=== PATIENT | female | born 1975 | race Caucasian/White ===

== ENCOUNTER 2025-06-09 13:12 | Outpatient (CLI) | payer OTHER, SELFPAY ==
[2025-06-09 13:52] LABS: Hematocrit 46.1 % (37.0-47.0); Hemoglobin 15.3 g/dL (12.0-15.0); Mean Corpuscular HGB Conc 33.2 g/dl (32-36); Mean Corpuscular Hemoglobin 29.3 pg (26-34); Mean Corpuscular Volume 88.1 fl (80-100); Platelet Count Result 257 k/mm3 (150-375); Red Blood Count 5.23 M/mm3 (4.2-5.4); White Blood Count 8.2 K/mm3 (4.5-10.0)
[2025-06-09 14:17] LABS: Iron 73 ug/dL (37-170)
[2025-06-09 14:18] LABS: Albumin Level 4.4 g/dL (3.5-5.1); Anion Gap 8 mmol/L (4-12); Blood Urea Nitrogen 32 mg/dL (7-17); Calcium 9.3 mg/dL (8.4-10.2); Carbon Dioxide 26 mmol/L (22-30); Chloride 102 mmol/L (98-107); Estimated Glomerular Filt Rate 57; Glucose 81 mg/dL (65-110); Potassium 4.0 mmol/L (3.4-5.0); Sodium 136 mmol/L (137-145)
[2025-06-09 14:27] LABS: Prealbumin 29.9 mg/dL (17.6-36.0)
[2025-06-09 14:44] LABS: Hemoglobin A1C 5.3 % (<5.7)
--- OUTSIDE RECORDS SUMMARY | 2025-06-09 15:45 | XMS_ITS | Clinical Summary ---
Author Organization [facility] Address [address] [place] [address] Care Team Providers Care Ingot Weigher Name Role Phone None, Provider MD Primary Care Provider Unavaila ble Allergies No known active allergies Medications ZEPBOUND 7.5 MG/0.5ML injection Inject 7.5 mg into the skin once a week. 03/03/2025 Active Encounters Date Type Department Care Team Description 03/27/2025 1:29 PM CDT - 03/27/2025 4:49 PM CDT Emergency [facility] [place] [address] Coy Reynolds MD Breathing Problem Discharge Disposition: Home or Self Care (Routine Discharge) 03/27/2025 Travel from Last 3 Months Social History Tobacco Use Types Packs/Day Years Used Date Smoking Tobacco: Never Smokeless Tobacco: Never Tobacco Cessation:Counseling Given: Not Answered Alcohol Use Standard Drinks/Week Comments Never 0 (1 standard drink = 0.6 oz pur e alcohol) Comments No Sex and Gender Information Value Date Recorded Sex Assigned at Female 03/27/2025 1:23 PM CDT Legal Sex Female 1:17 PM CDT Gender Identity Not on file Sexual Orientation Not on file Last Filed Vital Signs Vital Sign Reading Time Taken Comments Blood Pressure 121/73 03/27/2025 4:40 PM CDT Pulse 65 03/27/2025 4:40 PM CDT Temperature 36.7 C (98.1 F) 03/27/2025 1:27 PM CDT Respiratory Rate 17 03/27/2025 4:40 PM CDT Oxygen Saturation 97% 03/27/2025 4:40 PM CDT Inhaled Oxygen Concentration - - Weight 77.9 kg (171 lb 11.8 oz) 03/27/2025 1:27 PM CDT Height 162.6 cm (5' 4) 03/27/2025 1:27 PM CDT Body Mass Index 29.48 03/27/2025 1:27 PM CDT Plan of Treatment Health Maintenance Due Date Last Done Comments Cervical Cancer Screening Pap Smear (Age 30 to 64) Every 3 Years 1975 Colorectal Cancer Screening Colonoscopy (10 Years) 1975 Annual Physical 1978 Hepatitis C 1993 DTaP, Tdap and Td Vaccines (1 - Tdap) 1994 Hepatitis B Vaccines (1 of 3 - 19+ 3-dose series) 1994 Cervical Cancer Screening Pap with HPV Testing (Age 30 to 64) Every 5 Years 2005 Cervical Cancer Screening with HPV 2005 Mammogram Screening 03/20/2025 03/20/2023, 06/08/2020, 12/14/2018, Additional history exists COVID-19 Vaccine ( season) 2025 Meningococcal B Vaccine Aged Out No l onger eligible based on patient's age to complete this topic Meningococcal Vaccine Aged Out No elsa minna eligible based on patient's age to complete this topic Pneumococcal Vaccine: Pediatrics (0 to 5 Years) and At-Risk Patients (6 to 49 Years) Aged Out No longer eligible based on patient's age to complete this topic RSV Immunizations Under 20 Months Aged Out No longer eligible based on patient's age to complete this topic Procedures Procedure Name Priority Date/Time Associated Diagnosis Comments TROPONIN, QUANT STAT 03/27/2025 3:35 PM CDT CTA CHEST PE PROTOCOL STAT 03/27/2025 3:09 PM CDT ELECTROCARDIOGRAM REPORT Routine 025 2:11 PM CDT XR CHEST PORTABLE STAT 03/27/2025 1:5 0 PM CDT CHORIONIC GONADOTROPIN HCG QL STAT 03/27/2025 1:31 PM CDT TROPONIN, QUANT STAT 03/27/2025 1:31 PM CDT COMPREHENSIVE METABOLIC PANEL STAT 03/27/2025 1:31 PM CDT CBC W/DIFF AUTOMATED STAT 03/27/2025 1:31 PM CDT ECG 12-LEAD Routine 03/27/2025 1:22 PM CDT from Last 3 Months Results * TROPONIN, QUANT (03/27/2025 3:35 PM CDT) Only the most recent of2 resultswithin the time period is included. TROPONIN I HIGH SENSITIVITY 6 <54 ng/L 03/27/2025 4:16 PM CDT [facility] Comment: HIGH DOSES OF BIOTIN, TROPONIN-SPECIFIC AUTOANTIBODIES, AND ANTIBODY THERAPY CONTAINING HAMA MAY INTERFERE WITH THIS TEST RESULT. CORRELATION TO CLINICAL HISTORY AND PRESENTATION RECOMMENDED. 03/27/2025 3:35 PM CDT Coy Reynolds MD LABORATORY Final Result [facility] [address] [place] [address], [place] [phone] * CTA CHEST PE PROTOCOL (03/27/2025 3:09 PM CDT) Anatomical Region Laterality Modality Chest Computed Tomogra phy 03/27/2025 3:45 PM CDT Impressions 03/27/2025 3:51 PM CDT Impression: 1. No pulmonary embolism identified through the segmental pulmonary artery branch level. Assessment for distal subsegmental emboli is limited due to breathing artifact and suboptimal bolus contrast opacification the pulmonary arterial tree. 2. No acute pulmonary abnormality. Ordered By: COY REYNOLDS Interpreted By: Nadya Delgadillo MD, 03/27/2025 3:45 PM Narrative 03/27/2025 3:51 PM CDT [facility] [address] [place], [place] [address] Exam: CT angiography chest Exam Date/Time: 03/27/2025 3:02 PM Indication: 49 female. Evaluation for pulmonary embolism. Left-sided chest discomfort, was too deep breathing. Comparison: Chest x-ray 03/27/2025 Technique: Computed tomography angiography of the chest was performed no protocol following uneventful intravenous administration of 100 mL Isovue-370 contrast. 3-D reconstructions and postprocessing performed on a separate dedicated 3-D workstation.. A dose lowering technique was used for this procedure, which may include, but is not limited to, dose reduction technique, automated exposure control, the use of iterative reconstruction, and ALARA (As Low As Reasonably Achievable) / Image Gently techniques. CTA Findings: VASCULATURE No intraluminal filling defects suggestive pulmonary embolism identified through the segmental pulmonary artery branch level within study limits. Assessment for distal subsegmental emboli is limited due to breathing artifact and suboptimal bolus contrast opacification the pulmonary arterial tree.. No findings of right heart strain. No central pulmonary arterial enlargement. Thoracic aorta is unremarkable MEDIASTINUM Support tubes and lines: None. Base of neck/thyroid: Negative. Heart: Normal in size. No pericardial effusion. Lymph nodes: No supraclavicular, axillary, internal mammary, mediastinal, or hilar adenopathy. LUNGS AND PLEURA Lungs: Bilateral mild central hemidiaphragm elevation and bibasilar subsegmental atelectasis. Otherwise lungs are clear. No concerning pulmonary nodule, mass or consolidation. No other acute or significant chronic airspace finding. Central airways are clear. No evidence thickening or mucous plugging Pleura: No pleural effusion, thickening, or calcification. UPPER ABDOMEN Unremarkable. BONES/SOFT TISSUES Minimal thoracic spine ventral endplate degenerative spurring. Endplate changes most pronounced at T11-12. No concerning focal lytic or blastic lesion Procedure Note Nadya Delgadillo MD - 03/27/2025 [facility] [address] [facility] [place] [address] Exam: CT angiography chest Exam Date/Time: 03/27/2025 3:02 PM Indication: 49 female. Evaluation for pulmonary embolism. Left-sided chestdiscomfort, was too deep breathing. Comparison: Chest x-ray 03/27/2025 Technique: Computed tomographyangiography of the chest was performed no protocol following uneventfulintravenous administration of 100 mL Isovue-370 contrast. 3-Dreconstructions and postprocessing performed on a separate dedicated 3-Dworkstation.. A dose lowering technique was used for this procedure, whichmay include, but is not limited to, dose reduction technique, automatedexposure control, the use of iterative reconstruction, and ALARA (As LowAs Reasonably Achievable) / Image Gently techniques. CTA Findings: VASCULATURE No intraluminal filling defects suggestive pulmonary embolism identifiedthrough the segmental pulmonary artery branch level within study limits.Assessment for distal subsegmental emboli is limited due to breathingartifact and suboptimal bolus contrast opacification the pulmonaryarterial tree.. No findings of right heart strain. No central pulmonary arterialenlargement. Thoracic aorta is unremarkable MEDIASTINUM Support tubes and lines: None. Base of neck/thyroid: Negative. Heart: Normal in size. No pericardial effusion. Lymph nodes: No supraclavicular, axillary, internal mammary, mediastinal,or hilar adenopathy. LUNGS AND PLEURA Lungs: Bilateral mild central hemidiaphragm elevation and bibasilarsubsegmental atelectasis. Otherwise lungs are clear. No concerningpulmonary nodule, mass or consolidation. No other acute or significantchronic airspace finding. Central airways are clear. No evidence thickening or mucous plugging Pleura: No pleural effusion, thickening, or calcification. UPPER ABDOMEN Unremarkable. BONES/SOFT TISSUES Minimal thoracic spine ventral endplate degenerative spurring. Endplatechanges most pronounced at T11-12. No concerning focal lytic or blasticlesion Impression: 1. No pulmonary embolism identified through the segmental pulmonaryartery branch level. Assessment for distal subsegmental emboli is limiteddue to breathing artifact and suboptimal bolus contrast opacification thepulmonary arterial tree. 2. No acute pulmonary abnormality. Ordered By: COY REYNOLDS Interpreted By: Nadya Delgadillo MD, 03/27/2025 3:45 PM us Coy Reynolds MD CT Final Result * EKG Reading (03/27/2025 2:11 PM CDT) Narrative Coy Reynolds MD - 03/27/2025 2:11 PM CDT Coy Reynolds MD 03/27/2025 4:36 PM EKG Reading Date/Time: 03/27/2025 2:11 PM Performed by: Coy Reynolds MD Authorized by: Coy Reynolds MD Interpreted by ED physician Previous ECG: no previous ECG available Rhythm: sinus rhythm Rate: normal BPM: 85 Comments: Normal sinus rhythm. Heart rate 85. Normal axis Norval normal QRS nonspecific ST-T wave change. No old EKG to compare. Rhythm strip ordered and interpreted 1322 Normal sinus rhythm. Heart rate 85. No ectopy us Coy Reynolds MD [facility] Final Result * XR CHEST PORTABLE (03/27/2025 1:50 PM CDT) Anatomical Region Laterality Modality Chest Radiographic Selene ging 03/27/2025 1:52 PM CDT Impressions 03/27/2025 1:52 PM CDT IMPRESSION: No acute findings Ordered By: COY REYNOLDS Interpreted By: Andrew Tierney MD, 03/27/2025 1:52 PM Narrative 03/27/2025 1:52 PM [address] [address] SINGLE VIEW OF THE CHEST Clinical history: Shortness of breath Comparison: None A single view of the chest demonstrates the cardiac silhouette to be normal in size and appearance. The pulmonary vessels appear normal. The Lungs are clear. No consolidations or effusions are seen. Procedure Note Andrew Tierney MD - 03/27/2025 [facility] [address] [place], [place] [address] SINGLE VIEW OF THE CHEST Clinical history: Shortness of breath Comparison: None A single view of the chest demonstrates the cardiac silhouette to benormal in size and appearance. The pulmonary vessels appear normal. TheLungs are clear. No consolidations or effusions are seen. IMPRESSION: No acute findings Ordered By: COY REYNOLDS Interpreted By: Andrew Tierney MD, 03/27/2025 1:52 PM us Coy Reynolds MD GENERAL IMAGING Final Result * (ABNORMAL) COMPREHENSIVE METABOLIC PANEL (03/27/2025 1:31 PM CDT) GLUCOSE 98 70 - 99 MG/DL 03/27/2025 2:04 PM CDT [facility] BUN 29(H) 7 - 18 MG/DL 03/27/2025 2:04 PM CDT [facility] CREATININE S/P/B 0.92 0.55 - 1.02 MG/DL 03/27/2025 2:04 PM CDT [facility] SODIUM S/P/B 141 136 - 145 MMOL/L 03/27/2025 2:04 PM CDT [facility] POTASSIUM S/P/B 3.9 3.5 - 5.1 MMOL/L 03/27/2025 2:04 PM CDT [facility] CHLORIDE S/P/B 109 97 - 115 MMOL/L 03/27/2025 2:04 PM CDT [facility] CO2 26.6 21 - 32 MMOL/L 03/27/2025 2:04 PM CDT [facility] CALCIUM S/P/B 8.8 8.5 - 10.1 MG/DL 03/27/2025 2:04 PM CDT [facility] BILIRUBIN TOTAL S/P/B 0.3 0.2 - 1.2 MG/DL 03/27/2025 2:04 PM T [facility] Comment: THIS ASSAY IS NOT RECOMMENDED FOR PATIENTS UNDERGOING TREATMENT WITH ELTROMBOPAG DUE TO THE POTENTIAL FOR FALSELY ELEVATED RESULTS. TOTAL PROTEIN S/P/B 7.0 6.4 - 8.2 G/DL 03/27/2025 2:04 PM CDT [facility] ALBUMIN S/P/B 3.4 3.4 - 5.0 G/DL 03/27/2025 2:04 PM CDT [facility] AST 13(L) 15 - 37 U/L 03/27/2025 2:04 PM T [facility] ALT 23 14 - 55 U/L 03/27/2025 2:04 PM T [facility] ALKALINE PHOSPHATASE S/P/B 72 50 - 136 U/L 03/27/2025 2:04 PM T [facility] ANION GAP 5.4 2 - 10 MMOL/L 03/27/2025 2:04 PM T [facility] BUN CREATININE RATIO 31.5(H) 6 - 26 03/27/2025 2:04 PM T [facility] A/G RATIO 0.9(L) 1.0 - 2.0 RATIO 03/27/2025 2:04 PM T [facility] GFR ESTIMATE 76(L) >90 ML/MIN/1.7 3 M2 03/27/2025 2:04 PM T [facility] Comment: NOTE: eGFR is not calculated for patients <18 years of age or gender unknown. This is an estimated GFR calculation using the new CKD EPI creatinine equation without race and so does not require a correction factor for race. This estimated GFR should not be used for calculating drug doses. 03/27/2025 1:31 PM CDT us Coy Reynolds MD LABORATORY Final Result [facility] [address] [place] [address], [place] [phone] * Qualitative HCG (03/27/2025 1:31 PM CDT) Pathologist [facility] PREG SCREEN-SERUM POSITIVE 03/27/2025 2:12 PM CDT [facility] 03/27/2025 1:31 PM CDT Coy Reynolds MD LABORATORY Final Result Performing Organization Address City/[facility] Co de Phone Number [facility] [address] [place] [address], [place] [phone] * (ABNORMAL) CBC W/DIFF AUTOMATED (03/27/2025 1:31 PM CDT) [facility] WBC 11.29(H) 4.5 - 11.0 x10'3/uL 03/27/2025 2:00 PM CDT [facility] RBC 4.66 4.20 - 5.40 x10'6/uL 03/27/2025 2:00 PM CDT [facility] HGB 14.0 12.0 - 16.0 G/DL 03/27/2025 2:00 PM CDT [facility] HCT 41.0 38.0 - 48.0 % 03/27/2025 2:00 PM CDT [facility] MCV 88.0 81.0 - 99.0 FL 03/27/2025 2:00 PM CDT [facility] MCH 30.0 27.0 - 31.0 PG 03/27/2025 2:00 PM CDT [facility] MCHC 34.1 32.0 - 36.0 G/DL 03/27/2025 2:00 PM CDT [facility] RDW 13.4 11.5 - 14.5 % 03/27/2025 2:00 PM CDT [facility] PLT 239 130 - 400 x10'3/uL 03/27/2025 2:00 PM CDT [facility] MPV 9.3 9.3 - 12.2 FL 03/27/2025 2:00 PM CDT [facility] DIFFERENTIAL TYPE AUTOMATED DIFFERENTIAL 03/27/2025 2:00 PM CDT [facility] NEUTROPHILS % 82.2 % 03/27/2025 2:00 PM CDT [facility] LYMPHOCYTES % 9.8 % 03/27/2025 2:00 PM CDT [facility] MONOCYTES % 6.7 % 03/27/2025 2:00 PM CDT [facility] EOSINOPHILS 0.5 % 03/27/2025 2:00 PM CDT [facility] BASOPHILS 0.4 % 03/27/2025 2:00 PM CDT [facility] IMMATURE GRANS % 0.4 % 03/27/20 2:00 PM CDT [facility] ABS. NEUTROPHILS 9.27(H) 1.80 - 7.70 x10'3/uL 03/27/2025 2:00 PM CDT [facility] ABS. LYMPHOCYTES 1.11 1.00 - 4.80 x10'3/uL 03/27/2025 2:00 PM CDT [facility] ABS. MONOCYTES 0.76 0.24 - 0.86 x10'3/uL 03/27/2025 2:00 PM CDT [facility] ABS. EOSINOPHILS 0.06 0.04 - 0.36 x10'3/uL 03/27/2025 2:00 PM CDT [facility] ABS. BASOPHILS 0.04 0.01 - 0.08 x10'3/uL 03/27/2025 2:00 PM CDT [facility] ABS. IMMATURE GRANULOCYTES 0.05 0.00 - 0.49 x10'3/uL 03/27/2025 2:00 PM CDT [facility] 03/27/2025 1:31 PM CDT Coy Reynolds MD LABORATORY Final Result [facility] [address] [place] [address], [place] [phone] * ECG 12 lead (03/27/2025 1:22 PM CDT) 03/27/2025 1:22 PM CDT Narrative [facility] - 03/28/2025 7:00 AM CDT [address] Test Date: 2025-03-27 Pat Name: TUCKER MUNSON Department: 41 Room: Gender: F Brazer Resistance: : 1975 Requested By: PALOMO QIU Order Number: [id number] Reading MD: Ludwig Morales Measurements Intervals Braxton Rate: 85 P: 56 SD: 160 QRS: 4 QRSD: 88 T: 42 QT: 337 QTc: 401 Interpretive Statements SINUS RHYTHM POSSIBLE ANTERIOR MYOCARDIAL INFARCTION [30 ms Q WAVE IN V3/V4, OR R < 0.2 mV IN V4], OF INDETERMINATE AGE No previous ECG available for comparison Other ischemic changes, not STEMI Preliminary EKG Interpretation by Coy Reynolds M.D. Procedure Note Ludwig Morales MD - 03/28/2025 [facility] [address] [facility] [place] [facility] Date: 2025-03-27 Pat Name: TUCKER MUNSON Department: 41 Room: Gender: F Brazer Resistance: : 1975 Requested By: PALOMO QIU Order Number: [id number] Reading MD: Ludwig Morales Measurements Intervals Braxton Rate: 85 P: 56 SD: 160 QRS: 4 QRSD: 88 T: 42 QT: 337 QTc: 401 Interpretive Statements SINUS RHYTHM POSSIBLE ANTERIOR MYOCARDIAL INFARCTION [30 ms Q WAVE IN V3/V4, OR R < 0.2mV IN V4], OF INDETERMINATE AGE No previous ECG available for comparison Other ischemic changes, not STEMI Preliminary EKG Interpretation by Coy Reynolds M.D. us Coy Reynolds MD ECG ORDERABLES Final Result Performing Organization Address City/State/[facility] Co de Phone Number [facility] RAD from Last [address] [facility] Care Teams Ingot Weigher Relationship Specialty Start Date End Date None, Provider, MD PCP - General UNKNOWN PHYSICIAN SPECIALTY 03/27/25
--- OUTSIDE RECORDS SUMMARY | 2025-06-09 15:45 | XMS_ITS | Clinical Summary ---
Author Organization [facility] Address [address] [place] [address] Care Team Providers Care Resource Director Name Role Phone Gettinger Rowena K ENTRY LEVEL RECRUITER-VALVE INSPECTOR Primary Care Provide r Source Comments [facility],non-owned Affiliates and Associated Physician Practices is amultiple site organization consisting of ambulatory clinics and hospital sitesin [place], [place], [place] and [place]. This disclosure is being madepursuant to the Care Everywhere program and may not contain all information available regarding this patient. Last updated 18.[facility] Allergies No known active allergies Medications * Be aware that medications may not be up to date on this document. Alwaysverify current medications with the patient. 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 Gender Identity Female 04/03/2022 9:28 AM CDT Sexual Orientation Not on file Last Filed Vital Signs Vital Sign Reading Time Taken Comments Blood Pressure 128/86 03/16/2020 3:08 PM CDT Pulse 59 03/16/2020 3:08 PM CDT Temperature 36.2 C (97.1 F) 03/16/2020 3:08 PM CDT Respiratory Rate 18 03/16/2020 3:08 PM CDT Oxygen Saturation 97% 03/16/2020 3:08 PM CDT Inhaled Oxygen Concentration - - Weight 103 kg (227 lb) 03/16/2020 3:08 PM CDT Height 162.6 cm (5' 4) 03/16/2020 3:08 PM CDT Body Mass Index 38.96 03/16/2020 3:08 PM CDT Plan of Treatment Health Maintenance Due Date Last Done Comments COLOGUARD (AGES 45-75) - COLON CA SCREENING 1975 COLON MONITORING 1975 COLONOSCOPY - COLON CA SCREENING 1975 CT COLONOGRAPHY - COLON CA SCREENING 1975 Colorectal Cancer Screening 1975 FIT - COLON CA SCREENING 1975 FLEX SIG - COLON CA SCREENING 1975 HIV SCREENING 1990 HEPATITIS C SCREENING 09/12/1993 DTAP/TDAP/TD VACCINES (1 - Tdap) 1994 HEPATITIS B VACCINE (1 of 3 - 19+ 3-dose series) 1994 PAP SMEAR 01/03/2017 01/03/2014 SCREENING FOR DIABETES 04/06/2023 04/06/2020, 2019 DEPRESSION SCREENING 09/25/2024 MAMMOGRAM 03/20/2025 03/20/2023, 05/26, 05/22/2018, Additional history exists LIPID TESTING 04/06/2025 04/06/2020 COVID-19 VACCINE ( season) 2025 INFLUENZA VACCINE (#1) 2025 ZOSTER VACCINE (1 of 2) 2025 HIB VACCINE Aged Out No longer eligi ble based on patient's age to complete this topic HPV VACCINE Aged Out No longer eligi ble based on patient's age to complete this topic MENINGOCOCCAL (Group B) VACCINE SHARED DECISION-MAKING Aged Out No longer eligible based on patient's age to complete this topic MENINGOCOCCAL GROUPS A/C/Y/W VACCINE Aged Out No longer eligible based on patient's age to complete this topic Procedures Procedure Name Priority Date/Time Associated Diagnosis Comments MAMMO BILAT SCREENING W BRANDON Routine 03/20/2023 2:35 PM CDT Visit for screening mammogram HEMOGLOBIN A1C Routine 04/06/2020 10:51 AM CDT Amenorrhea Abnormal weight gain Night sweat LIPID PROFILE Routine 04/06/2020 10:51 AM CDT Amenorrhea Abnormal weight gain Night sweat from Last 3 Months or Most Recently Relevant to Health Maintenance Results * MAMMO BILAT SCREENING W BRANDON (03/20/2023 2:35 PM CDT) Anatomical Region Laterality Modality Breast Bilateral Mammography 03/21/2023 1:53 PM CDT Narrative 03/21/2023 1:53 PM CDT FULL FIELD DIGITAL BILATERAL SCREENING MAMMOGRAMS WITH CAD AND 3-D TOMOSYNTHESIS DATE: 03/20/2023 2:36 PM PREVIOUS EXAM DATE/S (EVALUATED FOR COMPARISON): 06/08/2020 INDICATION: Screening TECHNIQUE: Bilateral craniocaudad (CC) and mediolateral oblique (MLO) views. Images were interpreted with the aid of CAD. 3-D tomosynthesis images were performed. TISSUE DENSITY: There are scattered areas of fibroglandular density FINDINGS: No discrete abnormality. No significant interval change. ASSESSMENT: BI-RADS 2 - Benign Finding(s) RECOMMENDATIONS: Continued annual screening mammography The above findings should be correlated with physical examination. A relatively nonspecific study should not preclude additional evaluation if suspicious findings are present clinically. > Interpreting Provider: Amor Mao JR, MD on 03/21/2023 1:53 PM Rowena Mistry ENTRY LEVEL RECRUITER-VALVE INSPECTOR MAMMO ORDERABLES Dilcia l Result * (ABNORMAL) HEMOGLOBIN A1C (04/06/2020 10:51 AM CDT) Hemoglobin A1c 5.7(H) 4.2 - 5.6 % 04/06/2020 12:00 PM CDT [facility] Estimated Average Glucose 117 mg/dL 04/06/2020 12:00 PM CDT [facility] Blood BLOOD SPECIMEN / Unknown Venipuncture / Unknown 04/06/2020 10:51 AM CDT 04/06/2020 11:34 AM CDT Narrative [facility] - 04/06/2020 12:00 PM CDT The following cutoff levels are recommended by [place] [employer]. A1c > 6.5% : considered as diabetes if two separate tests >6.5% or in an appropriate clinical setting. A1c 5.7% - 6.4% : considered as prediabetes (suggest increased risk for diabetes and cardiovascular disease) Control target level: Should be individualized. < 7 for general (non-) , < 8% less stringent goal, < 6.5 more stringent goal. Hemoglobin A1c measurements are used as an aid in the diagnosis of diabetic mellitus, as an aid to identify patients who may be at the risk for developing diabetic mellitus, and for the monitoring long-term blood glucose control in individuals with diabetes mellitus. This test should not replace glucose testing for patients with Type 1 diabetes, pediatric patients, or women. Falsely low HbA1c results may be observed in patients with clinical conditions that shorten erythrocyte life span or decrease mean erythrocyte age such as the presence of unstable hemoglobin variants, elevated hemoglobin F level or other causes of hemolytic anemia . HbA1c may not accurately reflect glycemic control when clinical conditions that affect erythrocyte survival are present. Severe Iron deficiency anemia may yield falsely high results. Hemoglobin A1c assay should not be used to diagnose or monitor diabetes in patients with malignancy, recent blood transfusion, chronic kidney or liver disease. This method may yield falsely low results when hemoglobin (HbF) exceeds 5% in the specimen. us Tushar Dodge MD LAB - CHEMISTRY ORDERABLES Fin al Result Performing Organization Address City/State/[facility] de Phone Number [facility] [address] [place] [id number] * (ABNORMAL) LIPID PROFILE (04/06/2020 10:51 AM CDT) [facility] Cholesterol 253(H) <200 mg/dL 04/06/2020 12:04 PM CDT [facility] Triglycerides 176(H) <150 mg/dL 04/06/2020 12:04 PM CDT [facility] HDL Cholesterol 53 >40 mg/dL 0 12:04 PM CDT [facility] Chol HDL Ratio 4.8 1.0 - 6.0 04/06/2020 12:04 PM CDT [facility] LDL Calculated 165(H) 65 - 130 mg/dL 04/06/2020 12:04 PM CDT [facility] VLDL Calculated 35(H) <=30 mg/dL 0 12:04 PM T [facility] Blood BLOOD SPECIMEN / Unknown Venipuncture / Unknown 04/06/2020 10:51 AM CDT 04/06/2020 11:34 AM CDT Narrative [facility] - 04/06/2020 12:04 PM CDT Lipid Profile Comment: CHOLESTEROL LEVEL..................CLINICAL INTERPRETATION LESS THAN 200 MG/DL..............................DESIRABLE 200-239 MG/DL..............................BORDERLINE HIGH GREATER THAN 240 MG/DL................................HIGH LDL-CHOLESTEROL LEVEL..............CLINICAL INTERPRETATION LESS THAN 100 MG/DL................................OPTIMAL 100-129 MG/DL.................................NEAR OPTIMAL GREATER THAN 160 MG/DL...........................HIGH RISK HDL RISK LEVEL GREATER THEN 60 MG/DL............................DECREASED 40-60 MG/DL........................................AVERAGE LESS THAN 40 MG/DL...............................INCREASED TRIGLYCERIDE LEVEL..................CLINICAL INTERPRETATION LESS THAN 150 MG/DL...............................DESIRABLE 150-199 MG/DL...............................BORDERLINE HIGH 200-499 MG/DL..........................................HIGH GREATER THAN 500..................................VERY HIGH THE NATIONAL CHOLESTEROL EDUCATION PROGRAM HAS SET THE ABOVE GUIDELINES (REFERANCE VALUES) FOR CHOLESTEROL AND HDL. RISK ASSOCIATED WITH CHOLESTEROL/HDL RATIOS RISK....................MALE RATIO.............FEMALE RATIO 1/2 AVERAGE.................<3.4.......................<3.3 LOW RISK.................... 4.0 ...................... 3.8 AVERAGE..................... 5.0 ...................... 4.5 2X AVERAGE.................. 9.5 ...................... 7.0 3X AVERAGE...................>23........................>11 us Tushar Dodge MD LAB - CHEMISTRY ORDERABLES Fin al Result [facility] [address] [place] [address], [facility] from Last 3 Months or Most Recently Relevant to Health Maintenance Insurance [facility] [id number] [place] [id number] Care Teams Resource Director Relationship Specialty Start Date End Date Rowena Mistry, ENTRY LEVEL RECRUITER-VALVE INSPECTOR [address] [place] [address] PCP - General Nurse Practitioner 06/29/20
== END 2025-06-09 13:13 | disposition home or self-care (01) ==
LOC: ANHLAB 13:18
PROVIDERS: Visit Provider Surgery Plastic and Reconstructive Surgery
DX: R63.4 Abnormal weight loss (principal)
CPT/HCPCS: 36415; 80048; 82040; 83036; 83540; 84134; 85027

== ENCOUNTER 2025-07-01 00:22 | Day surgery (SDC) | payer OTHER, SELFPAY ==
[2025-06-23 12:44] VITALS: BMI 27.5
--- NOTE | 2025-06-23 12:45 | PC.NURSE ---
[facility] has started construction of its new state of the art ER which will open Spring 2026. With this, we anticipate parking may be a challenge for some our surgical patients and families. Parking spaces are limited but are available for all Surgical, obstetrics, and ER patients sharing this lot. If you arrive and find you are having a hard time finding a parking space, please note that we understand the challenges, please drive around the hospital and park near Hospital Entrance 1. When you enter this entrance, you can ask a volunteer to direct or take you back to the surgical waiting area to check in. We appreciate everyone?s understanding of these expected challenges while we build for your future. Report to the Outpatient Waiting Room, entrance under the green pavilion located off [address], at time _0630_ on date _[id number]_. Planned Procedure Time: _0830_.? Time changes happen often and if your time is changed the preop area will call you the afternoon before. - You and your visitor will be asked to self-screen and do not enter if you have any COVID symptoms. Please call surgeon if you need to reschedule. - A mask is optional within the hospital at this time. Patients may have clear liquids (water, carbonated beverages, clear teas, apple juice) until 3 hours prior to surgery with a maximum of 20 ounces. - No food from midnight until time of surgery and no smoking, or chewing tobacco (or any form of nicotine). No chewing gum, candy or mints. Take only the following medications with a SIP of water on the morning of surgery: ___None DO NOT STOP ANY OF YOUR OTHER PRESCRIPTION MEDICATIONS PRIOR TO SURGERY EXCEPT THE FOLLOWING Hold all vitamins and supplements for 3 days per anesthesiologist. Medications to discontinue per physician Date to take last hbzx___[phone]___ Please no make-up, nail english, hairspray, perfume, deodorant, or body powder the day of surgery.? No jewelry (including any body piercings) or valuables the day of surgery, leave them at home.? Please take a shower or bath the night before, or the morning of, surgery with an antibacterial soap.? Wear comfortable, loose fitting clothing.? - Jewelry must be removed prior to entering the operating room.? Rings and piercings that are not removed may be cut off. - The hospital will not accept responsibility for valuables.? - Please leave all valuables, including medications, at home the day of surgery. If you are going home after surgery, a licensed charter coach driver must drive you home.? - NO public transportation without another adult if you receive anesthesia. - We recommend that an adult stay with you for 24 hours following discharge. - We also recommend that you do not drive, make important decision, drink alcoholic beverages, or take any drugs that were not prescribed by your health care provider for at least 24 hours after your discharge time. Follow any additional instructions given to you from your surgeon. Telephone instructions given to __Stacey__and asked if any additional questions and then verbalized understanding. Patient advised to call surgeon office or pre surgery nurse liaison [phone] if any additional questions.
[2025-07-01] VITALS (8 sets, daily range): BP systolic 105–133; BP diastolic 68–79; PULSE 55–88; RESP 14–20; TEMP 36.2–36.4; O2SAT 94–99
--- OUTSIDE RECORDS SUMMARY | 2025-07-01 00:26 | XMS_ITS | Clinical Summary ---
Author Organization [facility] Address [facility] [place] [address] Care Team Providers Care Wire Repairer Name Role Phone None, Provider MD Primary Care Provider Unavaila ble Allergies No known active allergies Medications ZEPBOUND 7.5 MG/0.5ML injection Inject 7.5 mg into the skin once a week. 03/03/2025 Active Social History Tobacco Use Types Packs/Day Years [...] history exists COVID-19 Vaccine ( season) 2025 Influenza Adult (#1) 2025 Meningococcal B Vaccine Aged Out No [...] on patient's age to complete this topic Insurance [facility] Care Teams Wire Repairer Relationship Specialty Start Date End Date None, Provider, MD PCP - General UNKNOWN PHYSICIAN SPECIALTY 03/27/25
--- OUTSIDE RECORDS SUMMARY | 2025-07-01 00:26 | XMS_ITS | Clinical Summary ---
Author Organization [facility] Address [address] [place] [address] Care Team Providers Care Clerical Coordinator Name Role Phone Gettinger Rowena K DISTILLATION OPERATOR HELPER-PRODUCE WEIGHER Primary Care Provide r Source Comments [facility],non-owned Affiliates and Associated Physician Practices is amultiple site organization consisting of ambulatory clinics and hospital sitesin [place], [place], [place] and [place]. This disclosure is being madepursuant to the Care Everywhere program and may not contain all information available regarding this patient. Last updated 18.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 A1c > 6.5% : considered [...] ORDERABLES Fin al Result Performing Organization Address City/State/[facility] de Phone Number [facility] [address] [place] [id number] * (ABNORMAL) LIPID PROFILE (04/06/2020 10:51 AM CDT) [facility] Cholesterol 253(H) <200 mg/dL 04/06/2020 12:04 PM [...] 35(H) <=30 mg/dL 0 12:04 PM T [facility] Blood BLOOD SPECIMEN / Unknown Venipuncture [...] LAB - CHEMISTRY ORDERABLES Fin al Result [facility] [address] [place] [address], [facility] from Last 3 Months or Most Recently Relevant to Health Maintenance Insurance [facility] [id number] [place] [id number] Care Teams Clerical Coordinator Relationship Specialty Start Date End Date Rowena Mistry, DISTILLATION OPERATOR HELPER-PRODUCE WEIGHER [address] [place] [address] PCP - General Nurse Practitioner 06/29/20
[2025-07-01] MEDS: LACTATED RINGERS 1,000 ML 30 ML IV CONT ×2 (06:45→15:06)
--- NOTE | 2025-07-01 06:58 | WPDANESEPPF ---
Anes - Initial Pre Proc Eval Procedure: Operation Date: 07/01/25 08:30 Proposed Procedures p Abdominoplasty with Liposuction, - Kendall Ashley MD s Bilateral Breast Mastopexy with Galaflex - Kendall Ashley MD Date/Time: 07/01/25 06:58 Surgeon: Kendall Ashley MD Pre Op Diagnosis: skin laxity, micromastia Patient Data Age: 49 Gender: F Height: 1.63 m Weight: 72.7 kg Allergies Allergy/AdvReac Type Severity Reaction Status Date / Time No Known Allergies Allergy Verified 06/23/25 12:28 Home Medications ?Medication ?Instructions ?Recorded ?Confirmed ?Type Lactobacillus acidophilus 10 100 mmu cells PO DAILY 06/23/25 06/23/25 History billion cell capsule (Probacap) estradiol 6 mg implant pellet 6 mg subcut [id number] 06/23/25 06/23/25 History magnesium glycinate 100 mg (as 100 mg PO DAILY 06/23/25 06/23/25 History glycinate) tablet magnesium mal 50 mg-potassium cit 1 tablet PO DAILY 06/23/25 06/23/25 History 25 mg-taurine 175 mg-B6 1 mg tablet multivitamin (Daily Multi-Vitamin 1 tablet PO DAILY 06/23/25 06/23/25 History tablet) testosterone 75 mg implant pellet 150 mg subcut [id number] 06/23/25 06/23/25 History (Testopel) vitamin D3 125 mcg (5,000 1 cap PO DAILY 06/23/25 06/23/25 History unit)-vitamin K2 100 mcg capsule Patient hx anesthesia problems: none Family hx anesthesia problems: none Results Review: All pre-operative results and documents have been reviewed as part of the pre-operative evaluation. [facility] Social History Social History Smoking status: Never smoker Living arrangements: with family Spiritual care concerns: No Anes - Eval Final PreProcedure Day of Procedure 07/01/25 06:58 Patient weight: overweight Heart: regular rate and rhythm Lungs: clear to auscultation Airway: Mallampati scale class II Neurological: alert and oriented Last oral intake: >/= 8 hours ASA classification: I Emergent: no Anesthetic plan: proceed Anesthesia type and monitoring: general ETT and standard monitoring Results Review: All pre-operative results and documents have been reviewed as part of the pre-operative evaluation. Informed Consent: The patient's anesthetic plan and its attendant risks and benefits were discussed with the patient/family/POA. Questions were solicited and answers provided to the satisfaction of the patient/family/POA.
--- NOTE | 2025-07-01 07:07 | WPDHPUPDATE1 ---
History and Physical Update Update Date/Time: 07/01/25 07:07 History and Physical has been reviewed, including an updated exam of the patient. There are NO changes in the patient's condition. Risks, benefits, and alternatives have been discussed and questions answered. Patient agrees to proceed with procedure.
[2025-07-01] MEDS: TRANEXAMIC ACID 1,000MG/ISO100 1,000 MG/100 ML BAG 200 MG IVPB (07:45)
[2025-07-01] MEDS: ceFAZolin 2 GM in SODIUM CHLORIDE 0.9% IV 50 ML 100 ML IVPB (08:41)
[2025-07-01] MEDS: LACTATED RINGERS IRRIG 1,000 ML, LIDOCAINE 1% LOCAL INJ 50 ML, EPINEPHrine HCL INJ 1 MG... INFILTRATE (08:45)
[2025-07-01] MEDS: NACL 0.9% IRRIG POUR BOTTLE 900 ML, GENTAMICIN SULFATE INJ 160 MG, ceFAZolin 2 GM, POVI... IRRIGATION (08:45)
--- NOTE | 2025-07-01 14:59 | W.PM.PROC2 ---
Procedure Note - Detailed Date of Procedure 07/01/25 Pre-op Diagnosis skin laxity, micromastia Post-op Diagnosis Same Procedure Performed 1. Bilateral mastopexy with galaflex 2. Abdominoplasty with suction lipectomy Surgeon Kendall Ashley MD Anesthesia General Findings Tissue removed: 1217 grams Lipoaspirate: 3,050 cc Inverted T Superior medial pedicle Description of Procedure They are here today for the above procedures. Previously and again today the risks, benefits, alternatives were discussed in extensive detail. I wanted them to be very realistic about the risks involved as well as expectations. We discussed aftercare and what to monitor for. I was very upfront about the risks of wound breakdown leading to loss of skin, open wounds, and need for additional procedures with permanent abdominal deformity. We discussed DVT/PE risks and management. Made sure answered all of their questions to their satisfaction today and consent was obtained. They were marked in the preoperative holding area with their verification. The patient was taken to the operating room. Anesthesia was provided by anesthesiology. A Henry catheter was started. Posterior Placed prone on the operating room table with care taken to protect from injury. Prepped and draped in a standard sterile fashion. A surgical time-out was taken. Stab incisions were made and tumescent solution was infiltrated. Once adequate time was allowed for hemostasis a 5mm basket and 4mm vishnu cannula were utilized to complete suction lipectomy based on S.A.F.E. technique in multiple planes and passes. Suction lipectomy continued to result based on pre-operative planning, intra-operative observation, and rolling pinch test which were in full agreement. Breast Patient was then placed supine with care taken to protect from injury. Eleven blade was utilized to make a stab incision and infiltrated with low volume tumescent solution. The breast was tailor tacked into place. I tailor tacked the breast into position. Placed her in a sitting position. Verified the nipple-areolar location based on preoperative planning as well as intraoperative observations and measurements in full agreement. She was placed supine. I de-epithelialized the pedicle. I then de-epithelialized the inferior breast tissue to create an autoaugmentation flap based on intercostal fluorescent solution mixer. I elevated medial and lateral tissue flaps as well for planned closure. The autoaugmentation flap was sutured to the chest wall with 2-0 PDS. Galaflex was soaking in a betadine solution on the back table. It was trimmed and sutured into place with 2-0 Vicryl. I closed along the IMF with 2-0 Stratafix. Along the vertical with 2-0 PDS. I closed around the areola with 3-0 stratafix. 3-0 Monocryl along the vertical. 3-0 Stratafix along the IMF. I finally closed everything with running subcuticular 4-0 Monocryl and tissue glue. Brijjits were utilized for the vertical incision. Abdomen I placed the patient in a flexed position to verify the upper and lower markings would reach. I then placed supine. A thorough abdominal examination was completed. Stab incisions were made and tumescent solution infiltrated. Stab incisions were made and tumescent solution was infiltrated. Once adequate time was allowed for hemostasis a 5mm basket and 4mm vishnu cannula were utilized to complete suction lipectomy based on S.A.F.E. technique in multiple planes and passes. Suction lipectomy continued to result based on pre-operative planning, intra-operative observation, and rolling pinch test which were in full agreement. A 10 blade was used to make the upper incision. I continued dissection down to the level of fascia. Elevated just what was necessary for repair of the diastasis. I then again flexed the bed to verify the upper skin flap would reach the lower markings without tension. Once verified I placed her supine once again and a 10 blade used to make the lower incision. I elevated up to level the umbilicus and left the umbilicus intact on a well-vascularized stalk. The intervening tissue was removed. A 2 mm blunt cannula with 0.5% bupivacaine was injected deep to the fascia bilaterally. I plicated the diastasis recti using 0 PDO Stratafix barbed suture. This was in 2 separate layers using 2 separate sutures as well. The patient was flexed and starting from superior to inferior began plication using 2-0 Vicryl to obliterate all space in a standard progressive tension fashion. At the umbilicus I marked out the location of the skin and inset this with 3-0 Monocryl and 4-0 Vicryl. I continued the remainder of the plication using 2-0 Vicryl until I reached my lower planned scar line. I trimmed any excess skin of the upper flap making sure this was a tension-free closure. 15 Wyatt drain was placed. I then approximated using a 3 point suture with 2-0 Vicryl followed by 2-0 PDO Stratafix, 3-0 Stratafix ,running subcuticular 4-0 Monocryl, and tissue glue. Surgical bra, fluffs and an abdominal binder were placed. The patient was transferred to the bed in a flexed position. [place] and taken to the PACU without difficulty. All instrument and sponge counts were correct at the end of the case. Estimated Blood Loss 150 Drains Yes (15 Wyatt) Packing No Pathology None sent Complications No immediate complications Condition Stable Disposition PACU
[2025-07-01] MEDS: oxyCODONE HCL (*CRX) 5 MG TAB IR PO (16:00)
== END 2025-07-01 17:03 | disposition home or self-care (01) ==
PROVIDERS: Visit Provider Surgery Plastic and Reconstructive Surgery
PROC: (CPT 19316; principal; 2025-07-01 08:30)
PROC: (CPT 19316; 2025-07-01 08:30)
DX: Z41.1 Encounter for cosmetic surgery (principal); L57.4 Cutis laxa senilis; N64.82 Hypoplasia of breast; Z79.1 Long term (current) use of non-steroidal anti-inflammatories (NSAID); Z79.891 Long term (current) use of opiate analgesic; Z98.890 Other specified postprocedural states
CPT/HCPCS: 19316; 15777 ×2; 15830; 15847; 15877; 80307; J0690; A9270; J0166; J1100; J1171; J1580; J2003; J2250; J2405; J2704; J3010; J3290; J7120